=== PATIENT | male | born 1955 | race Caucasian/White ===

== ENCOUNTER 2023-11-08 03:27 | Emergency (ER) | payer MEDICARE, MEDICAID ==
[2023-11-08] MEDS: Lidocaine 1% with EPINEPHrine 1:100,000 20 ML MDV ONE (04:06)
[2023-11-08] MEDS: Diphtheria,Pertussis(Acell),Tetanus Vaccine 0.5 ML Syringe IM ONE (04:08)
== END 2023-11-08 04:39 ==
LOC: JD.ED 03:27
DX: S51.812A Laceration without foreign body of left forearm, initial encounter (principal); T14.91XA Suicide attempt, initial encounter; Z23 Encounter for immunization; W26.8XXA Contact with other sharp object(s), not elsewhere classified, initial encounter
CPT/HCPCS: 12005; 90471; 99285-25

== ENCOUNTER 2024-07-13 13:41 | Emergency (ER) | payer OTHER ==
[2024-07-13 14:48] LABS: APPEARANCE,URINE SLT CLOUDY (Clear); BILIRUBIN,URINE NEGATIVE (Negative); COLOR,URINE AMBER (Yellow); GLUCOSE,URINE NEGATIVE (Negative); KETONES,URINE NEGATIVE (Negative); LEUKOCYTE ESTERASE,URINE TRACE (Negative); NITRITE,URINE NEGATIVE (Negative); OCCULT BLOOD,URINE 3+ (Negative); PROTEIN,URINE 2+ (Negative); UROBILINOGEN,URINE 0.2 (0.2-1.0)
[2024-07-13 14:58] LABS: BARBITURATE SCREEN,URINE NEGATIVE (CUTOFF=200); BENZODIAZEPINES SCREEN,URINE NEGATIVE (CUTOFF=150); BUPRENORPHINE SCREEN,URINE NEGATIVE (CUTOFF=10); METHADONE SCREEN, URINE NEGATIVE (CUT0FF=200); METHAMPHETAMINES SCREEN, URINE NEGATIVE (CUTOFF=500); OXYCODONE SCREEN,URINE NEGATIVE (CUT0FF=100); THC SCREEN,URINE 20 NG/ML NEGATIVE (CUTOFF=50)
[2024-07-13 15:01] LABS: BACTERIA,URINE FEW /hpf (FEW); EPITHELIAL CELLS,URINE 0-5 /hpf (0-5); MUCUS,URINE FEW /hpf (FEW); RBC,URINE TOO NUMEROUS TO CNT /hpf (0-5)
[2024-07-13 15:03] LABS: AMPHETAMINES SCREEN, URINE NEGATIVE (CUTOFF=500)
[2024-07-13] MEDS: cefTRIAXone 1 GM, Lidocaine 1% 2.1 ML IM ONE (15:32)
== END 2024-07-13 15:30 | disposition home or self-care (01) ==
LOC: JD.ED 13:41
DX: N39.0 Urinary tract infection, site not specified (principal); N40.1 Benign prostatic hyperplasia with lower urinary tract symptoms; R33.8 Other retention of urine; T83.098A Other mechanical complication of other urinary catheter, initial encounter; Z86.16 Personal history of COVID-19
CPT/HCPCS: 51702; 80306; 81001; 96372; 99284; J0696; J2003

== ENCOUNTER 2025-01-05 14:21 | Emergency (ER) | payer OTHER | END 2025-01-05 15:45 | LOC: JD.ED 14:21 | DX: S09.90XA Unspecified injury of head, initial encounter (principal); Z86.16 Personal history of COVID-19; X58.XXXA Exposure to other specified factors, initial encounter | CPT/HCPCS: 70450; 70450-26; 99284 ==

== ENCOUNTER 2025-01-12 18:55 | Emergency (ER) | payer OTHER ==
[2025-01-12 19:41] LABS: BASOPHILS ABSOLUTE AUTO 0.1 K/mm3 (0.0-0.2); BASOPHILS PERCENT AUTO 0.4 % (0.0-1.0); EOSINOPHILS ABSOLUTE AUTO 0.2 K/mm3 (0.0-0.4); EOSINOPHILS PERCENT AUTO 1.4 % (0.0-6.0); IMMATURE GRAN ABSOLUTE AUTO 0.04 K/mm3 (0.00-0.05); IMMATURE GRAN PERCENT AUTO 0.3 % (0.0-0.4); LYMPHOCYTES ABSOLUTE AUTO 1.8 K/mm3 (1.0-4.8); LYMPHOCYTES PERCENT AUTO 15.1 % (24.0-44.0); MEAN PLATELET VOLUME 10.8 fl (9.4-12.4); MONOCYTES ABSOLUTE AUTO 0.7 K/mm3 (0.0-0.8); MONOCYTES PERCENT AUTO 5.8 % (0.0-8.0); NEUTROPHILS ABSOLUTE AUTO 9.1 K/mm3 (1.8-7.7); NEUTROPHILS PERCENT AUTO 77.0 % (41.0-71.0); NRBC ABSOLUTE 0.00 (0.00-0.02); NRBC PERCENT 0.0 % (0.0-0.2); PLATELET COUNT,PLT 276 K/mm3 (150-400); RED BLOOD CELL COUNT 4.54 M/mm3 (4.52-5.90); WHITE BLOOD CELL COUNT,WBC 11.76 K/mm3 (3.9-11.3)
[2025-01-12 19:59] LABS: A/G RATIO 1.2 (1-2); ALANINE AMINOTRANSFERASE,ALT 23.0 U/L (16-63); ASPARTATE AMNIOTRANSFERASE,AST 17.0 U/L (15-37); BILIRUBIN TOTAL 0.2 mg/dL (0.2-1.0); BLOOD UREA NITROGEN,BUN 13.0 mg/dL (7-18); CARBON DIOXIDE,CO2 28.0 mEq/L (21-32); CHLORIDE,CL 108.0 mEq/L (98-107); CREATININE 0.9 mg/dL (0.7-1.3); EST CRCL DRUG DOSING (CG) 64.86 mL/min; ESTIMATED GFR 92.0 mL/min (>60); GLUCOSE RANDOM 92.0 mg/dL (70-99); POTASSIUM,K 3.9 mEq/L (3.5-5.1); PROTEIN TOTAL,TP 6.4 g/dl (6.4-8.2); SODIUM,NA 143.0 mEq/L (136-145)
[2025-01-12 20:09] LABS: APPEARANCE,URINE CLOUDY (Clear); GLUCOSE,URINE NEGATIVE (Negative); OCCULT BLOOD,URINE 2+ (Negative)
[2025-01-12 20:24] LABS: EPITHELIAL CELLS,URINE NOT SEEN /hpf (0-5); WBC CLUMPS,URINE FEW /hpf (NOT SEEN)
[2025-01-12] MEDS: Oxybutynin 5 MG Tab.ER PO ONE (21:18)
[2025-01-12] MEDS: cefTRIAXone 1 GM in Water For Injection, Sterile 10 ML IVPUSH ONE (21:18)
[2025-01-12] MEDS: Phenazopyridine 95 MG Tab PO SCH (21:35)
[2025-01-13] MEDS ORDERED: Phenazopyridine 95 MG Tab PO SCH (09:00)
== END 2025-01-12 21:30 | disposition home or self-care (01) ==
LOC: JD.ED 18:55
DX: N39.0 Urinary tract infection, site not specified (principal); Z79.899 Other long term (current) drug therapy; Z86.16 Personal history of COVID-19; Z87.891 Personal history of nicotine dependence
CPT/HCPCS: 36415; 80053; 81001; 85025; 87086; 96374; 99284; A9270; J0696; 87088; 87186

== ENCOUNTER 2025-01-22 23:18 | Emergency (ER) | payer OTHER | END 2025-01-23 00:20 | LOC: JD.ED 23:18 | DX: N40.1 Benign prostatic hyperplasia with lower urinary tract symptoms (principal); R33.8 Other retention of urine; Z79.899 Other long term (current) drug therapy; Z86.16 Personal history of COVID-19 | CPT/HCPCS: 51702; 99283 ==

== ENCOUNTER 2025-02-21 19:39 | Emergency (ER) | payer OTHER ==
[2025-02-21 20:51] LABS: GLUCOSE,URINE NEGATIVE (Negative); OCCULT BLOOD,URINE 3+ (Negative)
[2025-02-21 20:57] LABS: APPEARANCE,URINE CLOUDY (Clear)
[2025-02-21 21:01] LABS: EPITHELIAL CELLS,URINE 0-5 /hpf (0-5); WBC CLUMPS,URINE MODERATE /hpf (NOT SEEN)
== END 2025-02-21 21:30 | disposition home or self-care (01) ==
LOC: JD.ED 19:39
DX: N30.01 Acute cystitis with hematuria (principal); Z86.16 Personal history of COVID-19; Z79.899 Other long term (current) drug therapy
CPT/HCPCS: 81001; 87086; 87088; 87186; 99284

== ENCOUNTER 2025-02-24 01:01 | Emergency (ER) | payer OTHER | END 2025-02-24 01:55 | disposition home or self-care (01) | LOC: JD.ED 01:01 | DX: T83.511A Infection and inflammatory reaction due to indwelling urethral catheter, initial encounter (principal); N30.01 Acute cystitis with hematuria; Z86.16 Personal history of COVID-19 | CPT/HCPCS: 99284; A9270; 99283 ==